=== PATIENT | male | born 1980 | race African-American/Black ===

== ENCOUNTER 2017-05-04 17:25 | Inpatient (IN) | payer BC ==
[~2017-05-04] VITALS: Ht 172.7 cm; Wt 106.6 kg
--- NOTE | ~2017-05-04 | D ---
[facility] [place] [address] DISCHARGE SUMMARY Name: CHRISTIAN ZAMORANO Room #: 433-I [facility] IN M.R.#: [id number] Admission: 05/04/17 Attend Phys: Dickson Arnold Discharge: 05/05/17 Date of : 76 Report #: [id number] THIS REPORT FOR: //name// CC[facility] DATE OF SERVICE: 05/05/2017 HISTORY OF PRESENT ILLNESS: The patient is a 37-year-old man with no major medical problems, who came to the hospital with flu-like symptoms for 4-5 days of duration. The patient reported fatigue, nausea, low p.o. intake, fever and headaches. Please refer to admission H and P for details. In brief, the patient was found to have hyponatremia with sodium of 123, hypokalemia, as well as elevated anion gap, suspicious for metabolic acidosis. HOSPITALIZATION COURSE: The patient was hospitalized for above symptoms and related complications. Likely etiology is viral illness. The patient was treated with IV fluids overnight. Hydrochlorothiazide was held. This morning, the patient's sodium is much better at 127, from 123. Potassium remains low at 3.1, but it is being replaced. Anion gap is better at 19 from 23. The patient feels much better. Although he had low-grade fever this morning, currently he is afebrile, and he feels much stronger. His energy level is back. His appetite is good, and he had no episodes of nausea or vomiting. He would like to go home today. Of note, the patient's D-dimer was elevated, but CT angiography revealed no pulmonary embolism. Incidentally, the patient has severe hepatic steatosis that was also confirmed on the right upper quadrant ultrasound. No acute findings reported. Chest x-ray was clear. Currently, the patient's condition is acceptable for him to go home. DISCHARGE DIAGNOSES: 1. Viral illness and related symptoms, as detailed above. Viral PCRs are pending, which will be followed as an outpatient. 2. Hyponatremia and hypokalemia, likely due to dehydration, much better on IV fluids. 3. Hypertension. The patient is advised to hold hydrochlorothiazide for next few days and have basic metabolic profile checked early next week. DISCHARGE MEDICATIONS: Please refer to medication reconciliation list. As noted, hydrochlorothiazide is held for the time being for next few days. [facility] [address] [place] [address] DISCHARGE SUMMARY Name: CHRISTIAN ZAMORANO Room #: 433-I [facility] IN M.R.#: [id number] Admission: 05/04/17 Attend Phys: Dickson Arnold Discharge: 05/05/17 Date of : 76 Report #: [id number] DISPOSITION: The patient is discharged home. FOLLOWUP PLAN: Follow up with primary care physician within 1 week or p.r.n. <ELECTRONICALLY SIGNED> By: Ezekiel Mckenna MD 05/08/17 1410 1102 1343 Ezekiel Mckenna MD /nt
--- NOTE | ~2017-05-04 | EKG ---
[place] [address] [facility] [place] [address] ELECTROCARDIOGRAM REPORT Name: CHRISTIAN ZAMORANO Room #: 433-I ADM IN M.R.#: [id number] Admission: 05/04/17 Attend Phys: Dickson Arnold Discharge: Date of : 76 Report #: [id number] THIS REPORT FOR: //name// [facility] ED Test Date: 2017-05-04 Test Time: 18:12:02 Pat Name: CHRISTIAN LONA Department: Room: [facility] Gender: M Lead Cargoman: JORDAN : 1980 Requested By: Glendy Cordova Order Number: [id number] MD: Jero Burgess Measurements Intervals [place] Rate: 119 P: 50 SD: 143 QRS: -47 QRSD: 105 T: 11 QT: 352 QTc: 496 Interpretive Statements Sinus tachycardia Atrial premature complex LAD, consider left anterior fascicular block Low voltage, precordial leads Borderline prolonged QT interval No previous ECG available for comparison Electronically Signed On 05-05-2017 8:27:32 DUTY MANAGER by Jero Burgess [email or web address] <ELECTRONICALLY SIGNED> By: Jero Burgess MD, [facility] 02/826 11 11 Jero Burgess MD, [facility] /EPI
[2017-05-04 17:31] VITALS: BP 118/84
[2017-05-04] MEDS ORDERED: LOSARTAN-HCTZ1 EAC3 PO (17:54)
[2017-05-04] MEDS ORDERED: NORVASC5 M1 PO (17:54)
[2017-05-04 18:46] LABS: ABSOLUTE NEUTROPHILS 4.5 thou/uL (1.4-8.2); BASOPHILS 0.7 % (0.0-2.0); HEMATOCRIT 44.6 % (42.0-52.0); HEMOGLOBIN 15.5 gm/dL (14.0-18.0); LYMPHOCYTES 23.6 % (24.0-44.0); MCH 32.1 pg (26.0-34.0); MCHC 34.7 g/dL (28.0-37.0); MCV 92.6 fL (80.0-100.0); MONOCYTES 10.4 % (1.0-8.0); PLATELET COUNT 202 thou/uL (150-400); POLYS 65.3 % (36.0-66.0); RBC 4.81 mil/uL (4.50-6.00); RDW 13.4 % (10.5-14.5); WBC 6.8 thou/uL (4.0-11.0)
[2017-05-04 18:49] LABS: CALCIUM 9.5 mg/dL (8.5-10.1); POTASSIUM 3.2 mmol/L (3.5-5.1)
[2017-05-04 20:06] LABS: CALCIUM 8.9 mg/dL (8.5-10.1); POTASSIUM 3.4 mmol/L (3.5-5.1)
[2017-05-04 20:47] LABS: ALBUMIN 4.7 g/dL (3.4-5.0); DIRECT BILIRUBIN 0.5 mg/dL (<0.1-0.3); TOTAL BILIRUBIN 1.4 mg/dL (<0.1-1.0); TOTAL PROTEIN 7.9 g/dL (6.4-8.2)
[2017-05-04 21:00] LABS: URINE BILIRUBIN NEGATIVE (Negative); URINE BLOOD 1+ (Negative); URINE CLARITY CLEAR; URINE COLOR YELLOW; URINE GLUCOSE-RANDOM* NEGATIVE (Negative); URINE KETONES 3+ (Negative); URINE LEUKOCYTES NEGATIVE (Negative); URINE NITRITE NEGATIVE (Negative); URINE PROTEIN (DIPSTICK) NEGATIVE (Negative); URINE SPECIFIC GRAVITY <= 1.005 (1.005-1.035); URINE UROBILINOGEN 0.2 E.U./dl (0.2-1.0)
[2017-05-04 21:15] LABS: CASTS None Seen /LPF (None Seen); SQUAMOUS None Seen /LPF (0-3)
[2017-05-04 21:16] LABS: BACTERIA None Seen /HPF (None Seen); CRYSTALS None Seen /LPF (None Seen); URINE RBC 0-2 Rare /HPF (0-2); URINE WBC 0-5 Rare /HPF (0-5)
[2017-05-04 21:25] VITALS: BP 129/70
[2017-05-04 21:56] VITALS: BP 144/62
[2017-05-05 03:19] VITALS: BP 137/79
[2017-05-05 04:00] LABS: HEMATOCRIT 39.8 % (42.0-52.0); HEMOGLOBIN 13.7 gm/dL (14.0-18.0); MCH 32.1 pg (26.0-34.0); MCHC 34.5 g/dL (28.0-37.0); MCV 93.1 fL (80.0-100.0); RBC 4.28 mil/uL (4.50-6.00); RDW 13.8 % (10.5-14.5); WBC 6.4 thou/uL (4.0-11.0)
[2017-05-05 04:02] LABS: POTASSIUM 3.1 mmol/L (3.5-5.1)
[2017-05-05 04:18] LABS: AMP/METHAMP Negative (Negative); BARBITURATES Negative (Negative); BENZODIAZEPINES Negative (Negative); COCAINE Negative (Negative); METHADONE Negative (Negative); OPIATES Negative (Negative); PCP Negative (Negative)
[2017-05-05 08:00] VITALS: BP 129/83
[2017-05-05] MEDS ORDERED: ONDANSETRON HCL4 M2 PO (11:07)
[2017-05-05 11:57] VITALS: BP 129/83
[2017-05-05 13:58] VITALS: BP 129/83
[2017-05-05 15:08] LABS: ESTIMATED AVERAGE GLUCOSE 97 mg/dL (())
[2017-05-05 23:07] LABS: HAV IgM AB (ANTI-HAV IgM) Negative (Negative); HEPATITIS B SURFACE AG Negative (Negative); HEPATITIS C VIRUS AB <0.1 (0.0-0.9)
[2017-05-09 00:09] LABS: ADENOVIRUS Negative (Negative); INFLUENZA A Negative (Negative); INFLUENZA B Negative (Negative); METAPNEUMOVIRUS Negative (Negative); PARAINFLUENZA 1 Negative (Negative); PARAINFLUENZA 2 Negative (Negative); PARAINFLUENZA 3 Negative (Negative); RHINOVIRUS Negative (Negative); RSV A Negative (Negative); RSV B Negative (Negative)
== END 2017-05-05 13:00 | disposition home or self-care (01) | DRG 866 ==
LOC: ER 17:25 → EROBS 20:27 → 4S 20:27 → ENTRNSPT 05-05 12:49 → EDTRNSPTSTS 05-05 12:52 → 4S 05-05 13:00
PROVIDERS: Emergency Medicine; Nurse Practitioner Acute Care
DX: B34.9 Viral infection, unspecified (principal); E87.2 Acidosis; E87.1 Hypo-osmolality and hyponatremia; I10 Essential (primary) hypertension; F17.210 Nicotine dependence, cigarettes, uncomplicated; R79.89 Other specified abnormal findings of blood chemistry; J06.9 Acute upper respiratory infection, unspecified; R06.6 Hiccough; E87.6 Hypokalemia; E86.0 Dehydration; R74.0 Nonspecific elevation of levels of transaminase and lactic acid dehydrogenase [LDH]; Z79.899 Other long term (current) drug therapy
CPT/HCPCS: 10100

== ENCOUNTER 2017-07-07 23:37 | Inpatient (IN) | payer BC ==
[~2017-07-07] VITALS: Ht 172.7 cm; Wt 102.5 kg
--- NOTE | ~2017-07-07 | CRIT ---
[facility] [place] [address] [place] [address] CRITICAL CARE NOTE Name: CHRISTIAN ZAMORANO Room #: 423-1 ADM IN M.R.#: [id number] Admission: 07/08/17 Attend Phys: Dickson Arnold Discharge: Date of : 76 Report #: [id number] THIS REPORT FOR: //name// CC: [facility] DATE OF SERVICE: 07/08/2017 Gastroenterology Consultation HISTORY OF PRESENT ILLNESS: The patient is a pleasant 37-year-old -[place] male I have been asked to see for further evaluation of his pancreatitis and elevated liver tests. The patient reports significant alcohol consumption over the course of last several months, pending a divorce. He drinks as much as 2 pints per day, but has been on a binge recently. He developed acute epigastric abdominal pain and presented for further evaluation in the emergency department. He denies other GI symptoms. He has never had pancreatitis in the past or been notified of alcoholic liver or pancreatic disease. PAST MEDICAL HISTORY: Notable for alcoholic intoxication in the past, dehydration, depression, elevated liver tests, hypertension, left arm fracture repair. He denies drug use. Alcohol as above. Does smoke as well. MEDICATIONS: On presentation include Norvasc, Cozaar, and hydrochlorothiazide. FAMILY HISTORY: Noncontributory. REVIEW OF SYSTEMS: Negative for weight loss, weakness or fatigue. He denies head, eyes, ears, nose or throat complaints, chest pain, chest palpitation, chest pressure, cough, shortness of breath, wheezing, genitourinary, musculoskeletal or neuropsychiatric complaints beyond that mentioned above. PHYSICAL EXAMINATION: VITAL SIGNS: Vital signs afebrile. Vital signs stable. HEENT: Nonicteric. NECK: No JVD, thyromegaly or bruits. CARDIOVASCULAR: Regular. LUNGS: Clear. ABDOMEN: Soft, nondistended with some epigastric tenderness, which has significantly improved over the last 24 hours per the patient. No stigmata of chronic liver disease. No abnormal masses or bruits. EXTREMITIES: No clubbing, cyanosis or edema. NEUROLOGIC: Not performed. RECTAL: Not performed. [facility] [address] [place] [address] CRITICAL CARE NOTE Name: CHRISTIAN ZAMORANO Room #: 423-1 ADM IN M.R.#: [id number] Admission: 07/08/17 Attend Phys: Dickson Arnold Discharge: Date of : 76 Report #: [id number] PERTINENT LABORATORY DATA: On presentation today include potassium 3.2, sodium 124, chloride 85, venous bicarbonate 20, gap of 19, BUN 12, creatinine 1.0, total bilirubin 1.5, direct bilirubin of 0.5, AST and ALT 157 and 97 respectively. Alkaline phosphatase normal, triglycerides 457, lipase 1213. IMAGING DATA: Reveals abdominal ultrasound, hepatomegaly with hepatic steatosis. No other specific abnormalities and a CT of the chest, which revealed no evidence of pulmonary embolism. The pancreas was not well examined on the study. 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 I have recommended cessation from alcohol and treatment through rehabilitation in . He should have good resolution of hepatic function with resolution of alcohol consumption. He has mild pancreatitis and seems to be improving already. We will give him clear liquid diet and advance if his lipase is okay in the morning. We will follow. <ELECTRONICALLY SIGNED> By: Jani Murphy MD 07/09/17 1256 [id number] Jani Murphy MD /nt
--- NOTE | ~2017-07-07 | EKG ---
[address] [employer] [place] [address] ELECTROCARDIOGRAM REPORT Name: CHRISTIAN ZAMORANO Room #: 423-1 ADM IN M.R.#: [id number] Admission: 07/08/17 Attend Phys: Dickson Arnold Discharge: Date of : 76 Report #: [id number] THIS REPORT FOR: //name// [facility] ED Test Date: 2017-07-08 Test Time: 01:12:28 Pat Name: YULYHENNY LONA Department: Room: Gender: M Emergency Detail Driver: sonali : 1980 Requested By: Raoul Velez Order Number: [id number] MD: Jero Burgess Measurements Intervals [place] Rate: 127 P: 50 [place]: 137 QRS: -74 QRSD: 91 T: 10 QT: 321 QTc: 467 Interpretive Statements Sinus tachycardia Left anterior fascicular block Probable anteroseptal infarct, old Baseline wander in lead(s) V1 Compared to ECG 05/04/2017 18:12:02 Atrial premature complexes are no longer present Electronically Signed On 07-09-2017 16:33:08 CDT by Jero Burgess [email or web address] <ELECTRONICALLY SIGNED> By: Jero Burgess MD, [facility] 07/09/17 1633 0112 0112 Jero Burgess MD, [facility] /EPI
[~2017-07-07 23:37] MED LIST: LOSARTAN-HCTZ1 EAC3 PO; NORVASC5 M1 PO; ONDANSETRON HCL4 M2 PO
[2017-07-08 00:16] LABS: URINE BILIRUBIN 1+ (Negative); URINE BLOOD 3+ (Negative); URINE CLARITY SL CLOUDY; URINE COLOR ORANGE; URINE GLUCOSE-RANDOM* NEGATIVE (Negative); URINE KETONES 3+ (Negative); URINE LEUKOCYTES-REFLEX NEGATIVE (Negative); URINE NITRITE-REFLEX NEGATIVE (Negative); URINE PROTEIN (DIPSTICK) 3+ (Negative); URINE SPECIFIC GRAVITY >= 1.030 (1.005-1.035)
[2017-07-08 00:24] LABS: ICTOTEST (BILI CONFIRMATORY) Positive (Negative)
[2017-07-08 00:30] LABS: SQUAMOUS 0-3 Few /LPF (0-3)
[2017-07-08 00:31] LABS: BACTERIA-REFLEX None Seen /HPF (None Seen); CRYSTALS None Seen /LPF (None Seen); HYALINE CASTS 0-3 Few /LPF (None Seen); MUCUS 4-6 Moderate strn/LPF (None Seen); URINE RBC 3-10 Few /HPF (0-2); URINE WBC-REFLEX None Seen /HPF (0-5)
[2017-07-08 00:45] LABS: AMP/METHAMP Negative (Negative); BARBITURATES Negative (Negative); BENZODIAZEPINES Negative (Negative); COCAINE Negative (Negative); METHADONE Negative (Negative); OPIATES Negative (Negative); PCP Negative (Negative)
[2017-07-08 01:13] LABS: BASOPHILS 1.6 % (0.0-2.0); HEMATOCRIT 43.2 % (42.0-52.0); LYMPHOCYTES 25.3 % (24.0-44.0); MCH 33.1 pg (26.0-34.0); MCHC 34.7 g/dL (28.0-37.0); MCV 95.3 fL (80.0-100.0); MONOCYTES 8.4 % (1.0-8.0); PLATELET COUNT 335 thou/uL (150-400); POLYS 64.7 % (36.0-66.0); RBC 4.53 mil/uL (4.50-6.00); RDW 13.9 % (10.5-14.5); WBC 9.3 thou/uL (4.0-11.0)
[2017-07-08 01:23] LABS: ANION GAP 19 mmol/L (7-16); BUN 12 mg/dL (7-18); CALCIUM 9.3 mg/dL (8.5-10.1); CHLORIDE 85 mmol/L (98-107); CO2 20 mmol/L (21-32); GLUCOSE 119 mg/dL (74-106); POTASSIUM 3.2 mmol/L (3.5-5.1); SODIUM 124 mmol/L (136-145)
[2017-07-08 01:29] LABS: ALBUMIN 4.6 g/dL (3.4-5.0); SALICYLATE < 2.8 mg/dL (2.8-20.0); SGOT 157 U/L (15-37); SGPT 97 U/L (30-65); TOTAL BILIRUBIN 1.5 mg/dL (<0.1-1.0); TOTAL PROTEIN 8.1 g/dL (6.4-8.2)
[2017-07-08 01:30] LABS: LIPASE 1213 U/L (73-393); TROPONIN-I < 0.04 ng/mL (<0.06)
[2017-07-08 02:57] VITALS: BP 151/93
[2017-07-08] MEDS ORDERED: COZAAR 25 MG TA25 M1 PO (03:02)
[2017-07-08] MEDS ORDERED: HYDROCHLOROTHIA25 M1 PO (03:02)
[2017-07-08 04:05] VITALS: BP 156/80
[2017-07-08 04:17] LABS: CHOLESTEROL 190 mg/dL (<200); HDL CHOLESTEROL 65 mg/dL (>40); TC:HDL 2.9 Ratio (Not establshd); TRIGLYCERIDE 457 mg/dL (<150); VLDL 91 mg/dL (<40)
[2017-07-08 04:23] LABS: SERUM ASSESSMENT Clear
[2017-07-08 04:36] VITALS: BP 132/80
[2017-07-08 07:30] VITALS: BP 132/81
[2017-07-08 07:56] LABS: HEMATOCRIT 37.6 % (42.0-52.0); HEMOGLOBIN 13.3 gm/dL (14.0-18.0); MCH 33.2 pg (26.0-34.0); MCHC 35.2 g/dL (28.0-37.0); MCV 94.1 fL (80.0-100.0); RDW 13.7 % (10.5-14.5); WBC 6.9 thou/uL (4.0-11.0)
[2017-07-08 18:06] LABS: GLYCOHEMOGLOBIN (HGB A1C) 4.9 % (4.8-5.6)
[2017-07-08 21:26] VITALS: BP 124/77
[2017-07-09 03:59] VITALS: BP 117/81
[2017-07-09 06:05] LABS: ABSOLUTE NEUTROPHILS 3.2 thou/uL (1.4-8.2); BASOPHILS 0.8 % (0.0-2.0); EOSINOPHILS 0.4 % (0.0-3.0); HEMATOCRIT 38.1 % (42.0-52.0); HEMOGLOBIN 13.1 gm/dL (14.0-18.0); LYMPHOCYTES 38.3 % (24.0-44.0); MCH 32.4 pg (26.0-34.0); MCHC 34.4 g/dL (28.0-37.0); MCV 94.1 fL (80.0-100.0); MONOCYTES 7.7 % (1.0-8.0); PLATELET COUNT 253 thou/uL (150-400); POLYS 52.8 % (36.0-66.0); RBC 4.05 mil/uL (4.50-6.00); RDW 13.6 % (10.5-14.5)
[2017-07-09 06:18] LABS: ALBUMIN 3.5 g/dL (3.4-5.0); CALCIUM 8.6 mg/dL (8.5-10.1); CREATININE 0.8 mg/dL (0.7-1.3); TOTAL BILIRUBIN 1.2 mg/dL (<0.1-1.0); TOTAL PROTEIN 6.4 g/dL (6.4-8.2)
[2017-07-09 06:22] LABS: POTASSIUM 2.8 mmol/L (3.5-5.1)
[2017-07-09 07:20] VITALS: BP 130/84
[2017-07-09 19:12] VITALS: BP 150/103
[2017-07-09 23:28] VITALS: BP 160/108
[2017-07-10 03:45] VITALS: BP 141/94
[2017-07-10 06:12] LABS: ALBUMIN 3.6 g/dL (3.4-5.0); CALCIUM 8.5 mg/dL (8.5-10.1); CREATININE 0.7 mg/dL (0.7-1.3); POTASSIUM 3.1 mmol/L (3.5-5.1); TOTAL BILIRUBIN 0.9 mg/dL (<0.1-1.0); TOTAL PROTEIN 6.3 g/dL (6.4-8.2)
[2017-07-10 08:00] VITALS: BP 127/83
[2017-07-10 15:50] VITALS: BP 127/83
== END 2017-07-10 16:18 | disposition home or self-care (01) | DRG 439 ==
LOC: ER 23:37 → 4E 07-08 01:59 → EROBS 07-08 01:59 → 4E 07-08 04:15 → ENTRNSPT 07-10 15:59 → 4E 07-10 16:18
PROVIDERS: Emergency Medicine; Family Medicine; Hospitalist; Nurse Practitioner Family
DX: K85.20 Alcohol induced acute pancreatitis without necrosis or infection (principal); E87.1 Hypo-osmolality and hyponatremia; E87.2 Acidosis; I10 Essential (primary) hypertension; F10.129 Alcohol abuse with intoxication, unspecified; E86.0 Dehydration; F32.9 Major depressive disorder, single episode, unspecified; E87.6 Hypokalemia; F17.210 Nicotine dependence, cigarettes, uncomplicated; R06.6 Hiccough; K21.9 Gastro-esophageal reflux disease without esophagitis; Z79.899 Other long term (current) drug therapy
CPT/HCPCS: 10183

== ENCOUNTER 2018-03-05 17:55 | Emergency (ER) | payer BC ==
[~2018-03-05] VITALS: Ht 172.7 cm; Wt 113.4 kg
[~2018-03-05 17:55] MED LIST changes: +COZAAR 25 MG TA25 M1 PO; +HYDROCHLOROTHIA25 M1 PO
[2018-03-05 18:49] LABS: ABSOLUTE NEUTROPHILS 3.4 thou/uL (1.4-8.2); BASOPHILS 0.2 % (0.0-2.0); EOSINOPHILS 0.9 % (0.0-3.0); HEMATOCRIT 40.9 % (42.0-52.0); HEMOGLOBIN 14.8 gm/dL (14.0-18.0); LYMPHOCYTES 48.3 % (24.0-44.0); MCH 32.9 pg (26.0-34.0); MCHC 36.2 g/dL (28.0-37.0); MCV 90.8 fL (80.0-100.0); MONOCYTES 7.5 % (1.0-8.0); PLATELET COUNT 358 thou/uL (150-400); POLYS 43.1 % (36.0-66.0); RBC 4.51 mil/uL (4.50-6.00); RDW 13.9 % (10.5-14.5); WBC 7.8 thou/uL (4.0-11.0)
[2018-03-05 18:57] LABS: POTASSIUM 3.8 mmol/L (3.5-5.1)
[2018-03-05 19:15] LABS: CALCIUM 8.9 mg/dL (8.5-10.1); CREATININE 0.8 mg/dL (0.7-1.3)
[2018-03-05 19:27] LABS: URIC ACID* 8.5 mg/dL (2.6-7.2)
[2018-03-05] MEDS ORDERED: INDOMETHACIN 5050 M1 PO (19:31)
[2018-03-05] MEDS ORDERED: HYDROCODONE-AP1 EAC6 PO (19:31)
[2018-03-05 19:44] VITALS: BP 155/106
== END 2018-03-05 19:45 | disposition home or self-care (01) ==
LOC: ER 17:55
PROVIDERS: Physician Assistant
DX: I10 Essential (primary) hypertension (principal); M10.041 Idiopathic gout, right hand; F17.210 Nicotine dependence, cigarettes, uncomplicated